=== PATIENT | male | born 1970 | race Hispanic/Latino ===

== ENCOUNTER 2023-06-09 08:20 | Emergency (ER) | payer OTHER ==
[2023-06-09 09:49] LABS: #Eosinphils 0.1 thou/uL (0.0-0.7); #Monocytes 0.4 thou/uL (0.11-0.59); #Neutrophils 2.5 thou/uL (1.40-6.50); %Basophils 0.3 % (0.0-1.0); %Eosinophils 2.4 % (0.0-10.0); %Lymphocytes 22.3 % (21.0-51.0); %Monocytes 9.7 % (0.0-10.0); Hematocrit 33.9 % (42.0-52.0); Hemoglobin 12.1 g/dL (14.0-18.0); Mean Corpuscular HGB CONC 35.7 g/dL (32.0-36.0); Mean Corpuscular Hemoglobin 35.5 pg (27.0-31.0); Mean Corpuscular Volume 99.4 fl (78.0-98.0); Mean Platelet Volume 10.5 fL (7.4-10.4); RBC Distribution Width 15.4 % (11.5-14.5); Red Blood Cell (RBC) Count 3.41 mill/uL (4.70-6.10); White Blood Cell (WBC) Count 3.8 10x3/uL (4.8-10.8)
[2023-06-09 09:53] LABS: Platelet Count 55 10x3/uL (130-400)
[2023-06-09 10:09] LABS: ALT (SGPT) 39 U/L (8-55); AST (SGOT) 54 U/L (5-34); Albumin 2.5 g/dL (3.5-5.0); Alkaline Phosphatase 284 U/L (40-110); Anion Gap 8 mmol/L (10-20); BUN (Urea Nitrogen) 13 mg/dL (8.4-25.7); Bilirubin, Total 2.6 mg/dL (0.2-1.2); Calc. Creatinine Clearance 0 mL/min (70-130); Calcium 8.4 mg/dL (7.8-10.44); Carbon Dioxide 20 mmol/L (22-29); Chloride 113 mmol/L (98-107); Estimated GFR 101; Globulin 4.9 g/dL (2.4-3.5); Glucose 92 mg/dL (70-105); Potassium 3.8 mmol/L (3.5-5.1); Protein, Total 7.4 g/dL (6.0-8.3); Sodium 137 mmol/L (136-145)
== END 2023-06-09 12:14 | disposition home or self-care (01) ==
LOC: ERS 08:20 → EEVIPCON 08:20 → ERS 12:14
DX: R41.82 Altered mental status, unspecified (principal); Z87.891 Personal history of nicotine dependence
CPT/HCPCS: 36415; 70450; 80053; 85025; 93005

== ENCOUNTER 2023-06-12 07:28 | Inpatient (IN) | payer OTHER ==
[2023-06-12 07:59] LABS: #Eosinphils 0.1 thou/uL (0.0-0.7); #Monocytes 0.5 thou/uL (0.11-0.59); #Neutrophils 4.5 thou/uL (1.40-6.50); %Basophils 0.5 % (0.0-1.0); %Eosinophils 0.9 % (0.0-10.0); %Lymphocytes 20.1 % (21.0-51.0); %Neutrophils 70.3 % (42.0-75.0); Hematocrit 37.1 % (42.0-52.0); Mean Corpuscular Hemoglobin 34.9 pg (27.0-31.0); Mean Corpuscular Volume 99.5 fl (78.0-98.0); Mean Platelet Volume 10.3 fL (7.4-10.4); RBC Distribution Width 15.7 % (11.5-14.5); Red Blood Cell (RBC) Count 3.73 mill/uL (4.70-6.10); White Blood Cell (WBC) Count 6.4 10x3/uL (4.8-10.8)
[2023-06-12 08:01] LABS: Platelet Count 79 10x3/uL (130-400)
[2023-06-12 08:18] LABS: ALT (SGPT) 46 U/L (8-55); AST (SGOT) 64 U/L (5-34); Albumin 2.7 g/dL (3.5-5.0); Alcohol Less than 10.0 mg/dL (Less than 10); Alkaline Phosphatase 281 U/L (40-110); Anion Gap 11 mmol/L (10-20); BUN (Urea Nitrogen) 14 mg/dL (8.4-25.7); Bilirubin, Total 3.4 mg/dL (0.2-1.2); Calc. Creatinine Clearance 0 mL/min (70-130); Calcium 8.6 mg/dL (7.8-10.44); Carbon Dioxide 19 mmol/L (22-29); Chloride 112 mmol/L (98-107); Estimated GFR 86; Globulin 5.4 g/dL (2.4-3.5); Glucose 94 mg/dL (70-105); Potassium 3.8 mmol/L (3.5-5.1); Protein, Total 8.1 g/dL (6.0-8.3); Sodium 138 mmol/L (136-145)
[2023-06-12 10:38] LABS: Amphetamine Not Detected (NotDetected); Barbiturates Screen Not Detected (NotDetected); Benzodiazepine Screen Not Detected (NotDetected); Cocaine Metabolite Screen Not Detected (NotDetected); Methadone Not Detected (NotDetected); Methamphetamine Not Detected (NotDetected); Opiate Screen Not Detected (NotDetected); Oxycodone Screen Not Detected (NotDetected); Phencyclidine (PCP) Not Detected (NotDetected); THC/Cannabinoid Screen Not Detected (NotDetected); Tricyclic Screen Not Detected (NotDetected)
[2023-06-12 10:39] LABS: Bacteria/HPF 1+ HPF (None Seen); Bilirubin Negative (Negative); Blood, Urine 1+ (Negative); CAUTI Indications for Culture Alt mental st,lethar; Clarity Turbid (Clear); Glucose, Urine (Dipstick) Normal (Negative); Ketone, Urine Negative (Negative); Leukocyte 500 Leu/uL (Negative); Nitrite 1+ (Negative); Protein, Urine (Dipstick) 20 mg/dL (Neg-Trace); Specific Gravity, Urine 1.016 (1.002-1.036); Squamous Epithelial 0-3 HPF (0-3); WBC/HPF Greater than 50 HPF (0-3)
[2023-06-12 10:40] LABS: Urine Culture Reflex Yes Yes
[2023-06-12] MEDS ORDERED: Lactulose 20 GM (30 mL) UDCUP ONE (10:47)
[2023-06-12] MEDS ORDERED: Acetaminophen 650 MG Suppository PR PRN (11:52)
[2023-06-12] MEDS ORDERED: Ondansetron ODT 4 MG TAB PO PRN (11:52)
[2023-06-12] MEDS ORDERED: Ondansetron PF 4 MG/2 ML Vial IVP PRN (11:52)
[2023-06-12] MEDS ORDERED: Acetaminophen 325 MG TAB PO PRN (11:52)
[2023-06-12 13:16] LABS: SARS-CoV-2 NAA Rapid Test Not Detected (NotDetected)
[2023-06-12] MEDS: Lactulose 20 GM (30 mL) UDCUP PO SCH (15:11)
[2023-06-12 15:44] VITALS: BMI 29.6
[2023-06-12] MEDS: hydrOXYzine 25 MG TAB PO SCH (21:39)
[2023-06-12] MEDS: Rifaximin 550 MG TAB PO SCH (21:39)
[2023-06-13 06:12] LABS: #Eosinphils 0.1 thou/uL (0.0-0.7); #Monocytes 0.5 thou/uL (0.11-0.59); #Neutrophils 2.8 thou/uL (1.40-6.50); %Basophils 0.4 % (0.0-1.0); %Eosinophils 2.4 % (0.0-10.0); Hemoglobin 11.2 g/dL (14.0-18.0); Mean Corpuscular Hemoglobin 35.1 pg (27.0-31.0); Mean Corpuscular Volume 100.3 fl (78.0-98.0); Red Blood Cell (RBC) Count 3.19 mill/uL (4.70-6.10); White Blood Cell (WBC) Count 4.9 10x3/uL (4.8-10.8)
[2023-06-13 06:17] LABS: Platelet Count 67 10x3/uL (130-400)
[2023-06-13 06:36] LABS: ALT (SGPT) 39 U/L (8-55); AST (SGOT) 61 U/L (5-34); Albumin 2.3 g/dL (3.5-5.0); Alkaline Phosphatase 191 U/L (40-110); Anion Gap 8 mmol/L (10-20); BUN (Urea Nitrogen) 15 mg/dL (8.4-25.7); Bilirubin, Total 3.8 mg/dL (0.2-1.2); Calc. Creatinine Clearance 107 mL/min (70-130); Calcium 7.9 mg/dL (7.8-10.44); Carbon Dioxide 20 mmol/L (22-29); Chloride 114 mmol/L (98-107); Estimated GFR 95; Globulin 4.4 g/dL (2.4-3.5); Glucose 82 mg/dL (70-105); Potassium 3.6 mmol/L (3.5-5.1); Protein, Total 6.7 g/dL (6.0-8.3); Sodium 138 mmol/L (136-145)
[2023-06-13] MEDS: Spironolactone 25 MG TAB PO SCH (08:41)
[2023-06-13] MEDS: Hydrochlorothiazide 25 MG TAB PO SCH (08:44)
[2023-06-13] MEDS: Pantoprazole 40 MG VIAL IVP SCH (08:44)
[2023-06-13] MEDS: Ciprofloxacin Lactate/D5W 400 MG in Premix 1 BAG IVPB SCH (11:15)
[2023-06-13] MEDS ORDERED: Acetaminophen 325 MG TAB PO PRN (14:17)
[2023-06-13] MEDS ORDERED: Acetaminophen 650 MG Suppository PR PRN (14:18)
[2023-06-14 09:15] VITALS: BP 125/72; TEMP 97.7
[2023-06-14 14:39] LABS: HCV RNA, log10 3.719 (.); Hep C PCR-Quant 5230 IU/mL (.)
[2023-06-15] MEDS ORDERED: FLU VACC QS2023-24(6MOS UP)/PF 60 MCG/0.5 ML SYRINGE IM ONE (16:00)
== END 2023-06-14 17:20 | disposition home or self-care (01) | DRG 441 ==
LOC: EEVIPCON 07:28 → ERS 07:28 → ERHOLD 10:17 → T4-B 15:01
PROVIDERS: ADMIT Family Medicine; ATTEND Family Medicine
DX: K76.82 Hepatic encephalopathy (principal); G93.41 Metabolic encephalopathy; N39.0 Urinary tract infection, site not specified; K74.60 Unspecified cirrhosis of liver; K21.9 Gastro-esophageal reflux disease without esophagitis; I86.4 Gastric varices; E80.6 Other disorders of bilirubin metabolism; Z98.890 Other specified postprocedural states; Z87.891 Personal history of nicotine dependence
CPT/HCPCS: 36415; 70450; 76705; 80053; 80306; 80307; 81001; 82140; 83880; 85025; 87040; 87077; 87086; 87186; 87522; 93005; 96360; C9113; J0744; U0002

== ENCOUNTER 2023-07-06 13:58 | Emergency (ER) | payer OTHER ==
[2023-07-06 15:27] LABS: #Eosinphils 0.1 thou/uL (0.0-0.7); #Monocytes 0.4 thou/uL (0.11-0.59); #Neutrophils 2.3 thou/uL (1.40-6.50); %Basophils 0.5 % (0.0-1.0); %Lymphocytes 31.9 % (21.0-51.0); %Monocytes 9.1 % (0.0-10.0); %Neutrophils 55.5 % (42.0-75.0); Hemoglobin 12.9 g/dL (14.0-18.0); Mean Corpuscular HGB CONC 33.9 g/dL (32.0-36.0); Mean Corpuscular Hemoglobin 34.4 pg (27.0-31.0); Mean Corpuscular Volume 101.3 fl (78.0-98.0); Mean Platelet Volume 10.4 fL (7.4-10.4); RBC Distribution Width 15.1 % (11.5-14.5); Red Blood Cell (RBC) Count 3.75 mill/uL (4.70-6.10); White Blood Cell (WBC) Count 4.1 10x3/uL (4.8-10.8)
[2023-07-06 15:32] LABS: Platelet Count 89 10x3/uL (130-400)
[2023-07-06 15:37] LABS: Prothrombin Time 22.6 sec (12.0-14.7)
[2023-07-06 15:38] LABS: PTT 47.8 sec (22.9-36.1)
[2023-07-06 15:46] LABS: ALT (SGPT) 62 U/L (8-55); AST (SGOT) 86 U/L (5-34); Albumin 2.4 g/dL (3.5-5.0); Alkaline Phosphatase 256 U/L (40-110); Bilirubin, Direct 1.1 mg/dL (0.1-0.3); Bilirubin, Total 3.8 mg/dL (0.2-1.2); Protein, Total 7.5 g/dL (6.0-8.3)
[2023-07-06 15:50] LABS: Anion Gap 7 mmol/L (10-20); BUN (Urea Nitrogen) 11 mg/dL (8.4-25.7); Calc. Creatinine Clearance 0 mL/min (70-130); Calcium 8.3 mg/dL (7.8-10.44); Carbon Dioxide 20 mmol/L (22-29); Chloride 117 mmol/L (98-107); Estimated GFR 98; Glucose 95 mg/dL (70-105); Potassium 3.7 mmol/L (3.5-5.1); Sodium 140 mmol/L (136-145)
[2023-07-06] MEDS ORDERED: Lactulose 20 GM (30 mL) UDCUP ONE (16:39)
== END 2023-07-06 17:15 ==
LOC: ERS 13:58
DX: K76.82 Hepatic encephalopathy (principal); Z87.891 Personal history of nicotine dependence
CPT/HCPCS: 36416; 70450; 80048; 80076; 82140; 85025; 85610; 85730